=== PATIENT | male | born 1980 | race African-American/Black ===

== ENCOUNTER 2016-11-03 09:20 | Emergency (ER) | payer SELFPAY ==
[2016-11-03 09:38] VITALS: BP 143/91; PULSE 66; TEMP 97.8; BMI 29.8
== END 2016-11-03 11:05 | disposition left against medical advice (07) ==
LOC: ED 09:20
DX: M25.511 Pain in right shoulder (principal); M79.621 Pain in right upper arm; Z53.21 Procedure and treatment not carried out due to patient leaving prior to being seen by health care provider
CPT/HCPCS: 99281